=== PATIENT | male | born 1990 | race Caucasian/White ===

== ENCOUNTER 2022-02-02 12:16 | Emergency (ER) | payer MEDICAID, SELFPAY ==
[2022-02-02 13:50] VITALS: BP 146/82; PULSE 90; RESP 20; TEMP 36.5; O2SAT 97; BMI 34.0
--- NOTE | 2022-02-02 13:52 | ED.GENADULT ---
HPI - General Adult General Chief complaint: Abdominal Pain <SUZY Huang - Last Filed: 02/15/22 09:02> Stated complaint: Abd pain/Hernia? <SUZY Huang - Last Filed: 02/15/22 09:02> Time Seen by Provider: 02/02/22 16:47 <SUZY Huang - Last Filed: 02/15/22 09:02> Source: patient <Natalia Hood NP - Last Filed: 02/02/22 23:43> Mode of arrival: ambulatory <Natalia Hood NP - Last Filed: 02/02/22 23:43> Limitations: no limitations <Natalia Hood NP - Last Filed: 02/02/22 23:43> History of Present Illness HPI narrative: 32-year-old male presents with left lower quadrant abdominal pain that started on . He stated that he was lifting at work and felt like a ripping pain was going through his abdomen. He feels a bulging at times, but is able to push the bulge back which reduces his pain. He has more pain on movement than he does at rest, and does not report any fevers, chills, changes in bowel habits, nausea, vomiting, weakness or fatigue. <Natalia Hood NP - Last Filed: 02/02/22 23:43> Onset (ago): day(s) <Natalia Hood NP - Last Filed: 02/02/22 23:43> Location: abdomen <Natalia Hood NP - Last Filed: 02/02/22 23:43> Radiation: non-radiation <Natalia Hood NP - Last Filed: 02/02/22 23:43> Severity: moderate <Natalia Hood NP - Last Filed: 02/02/22 23:43> Severity scale (1-10): 6 <Natalia Hood NP - Last Filed: 02/02/22 23:43> Quality: aching <Natalia Hood NP - Last Filed: 02/02/22 23:43> Pain Consistency: intermittent <Natalia Hood NP - Last Filed: 02/02/22 23:43> Relieving factors: rest <Natalia Hood NP - Last Filed: 02/02/22 23:43> Exacerbating factors: movement <Natalia Hood NP - Last Filed: 02/02/22 23:43> Associated symptoms: denies other symptoms <Natalia Hood NP - Last Filed: 02/02/22 23:43> Treatments prior to arrival: none <Natalia Hood NP - Last Filed: 02/02/22 23:43> Related Data Allergies/adverse reactions: Allergies Allergy/AdvReac Type Severity Reaction Status Date / Time No Known Allergies Allergy Verified 02/02/22 13:52 <SUZY Huang - Last Filed: 02/15/22 09:02> Review of Systems Review of Systems: Constitutional: No Fever, No Chills Cardiovascular: No Chest Pain, No SOB Respiratory: No Cough, No Dyspnea Gastrointestinal: No Nausea, No Vomiting, No Diarrhea, positive abdominal Pain Genitourinary: No Dysuria, No Hematuria Musculoskeletal: No joint pain, No Myalgias, No Joint Swelling Skin: No Skin lacerations, No rash Neuro: No Weakness, No Numbness, No Paresthesias, No Loss of Consciousness, No Dizziness, No Headache <Natalia Hood NP - Last Filed: 02/02/22 23:43> Yes all other systems are reviewed and are negative <Natalia Hood NP - Last Filed: 02/02/22 23:43> [facility] Past Medical History Attestation statement: The following information was validated with the patient. <Natalia Hood NP - Last Filed: 02/02/22 23:43> Source: old records reviewed <Natalia Hood NP - Last Filed: 02/02/22 23:43> Social History Social History: Social History Advance Directives: No Advance Directives Information Provided: No <SUZY Huang - Last Filed: 02/15/22 09:02> Physical Exam ED Vital Signs: Vital Signs - 24 hr 02/02/22 13:50 02/02/22 17:12 Temperature 97.7 F Pulse Rate 90 83 Respiratory Rate 20 16 Blood Pressure 146/82 H 129/81 Pulse Oximetry 97 96 Oxygen Delivery Method Room Air Room Air BMI result Body Mass Index 34.0 <SUZY Huang - Last Filed: 02/15/22 09:02> Vital Signs - 24 hr 02/02/22 13:50 02/02/22 17:12 Temperature 97.7 F Pulse Rate 90 83 Respiratory Rate 20 16 Blood Pressure 146/82 H 129/81 Pulse Oximetry 97 96 Oxygen Delivery Method Room Air Room Air BMI result Body Mass Index 34.0 <Natalia Hood NP - Last Filed: 02/02/22 23:43> Appearance: Alert. Oriented X3. No acute distress. Eyes: Pupils equal, round and reactive to light. ENT: Pharynx normal. Neck: Normal inspection. Neck supple. CVS: Normal heart rate and rhythm. Pulses normal. Respiratory: No respiratory distress. Breath sounds normal. Abdomen: Soft and nontender. Obese. No palpable hernias noted. Skin: Skin warm and dry. Normal skin color. Normal skin turgor. Extremities: Gait well balanced well coordinated. Neuro: No motor deficit. No sensory deficit. Cranial nerves 2-12 intact. <Natalia Hood NP - Last Filed: 02/02/22 23:43> Course Course Course Narrative: RME: 32-year-old male presents to the ED for left lower quadrant pain since that is worse on movement. Patient denies any nausea vomiting. Patient denies any complaints. Physical exam negative for any mass or bulging on palpation. Positive for left lower quadrant tender on palpation. Labs, UA and dry CT scan ordered <SUZY Huang - Last Filed: 02/15/22 09:02> RME: 32-year-old male presents to the ED for left lower quadrant pain since that is worse on movement. Patient denies any nausea vomiting. Patient denies any complaints. Physical exam negative for any mass or bulging on palpation. Positive for left lower quadrant tender on palpation. Labs, UA and dry CT scan ordered 32-year-old male presents with left lower quadrant abdominal pain, sounds more like a muscular skeletal strain verses inguinal hernia than an acute abdomen. Physical exam is normal, no tenderness to palpation or rigidity. No palpable hernias noted. CT scan was completed while patient was in the emergency department waiting room which was negative for acute findings requiring emergent intervention. 16:49 labs reviewed. Unremarkable with the exception of an elevated glucose. Patient is an insulin-dependent diabetic, and did not take his Lantus this morning. Will order L fluid and Lantus. Urinalysis is still pending 18:00 urinalysis shows glucose, which is consistent with his diagnosis of diabetes and medication noncompliance. Patient is alert oriented, no indication of diabetic ketoacidosis or complications related to hyperglycemia. plan of care is to discharge home. I did refer patient to a surgeon as an outpatient for suspected hernia. Patient does understand that he must follow up with primary care physician prior to presenting to surgery. I stressed the importance of medication compliance, patient verbalized understanding of and agrees with plan of care discharge home. Verbalized understanding of signs and symptoms indicating need for emergent intervention. <Natalia Hood NP - Last Filed: 02/02/22 23:43> Medications Administered Discontinued Medications Generic Name Dose Route Start Last Admin Trade Name Freq PRN Reason Stop Dose Admin Sodium Chloride 1,000 mls @ 999 mls/hr 02/02/22 17:30 02/02/22 17:25 Ns IVCONT 02/02/22 18:30 999 mls/hr .Q1H1M JORDAN Administration Insulin Glargine 24 unit 02/02/22 17:53 02/02/22 18:02 Insulin Glargine,Hum.Rec.Anlog 100 Unit/Ml 10 Ml Vial SUBCUT 02/02/22 17:54 24 unit ONCE ONE Administration <SUZY Huang - Last Filed: 02/15/22 09:02> Medications Administered Discontinued Medications Generic Name Dose Route Start Last Admin Trade Name Freq PRN Reason Stop Dose Admin Sodium Chloride 1,000 mls @ 999 mls/hr 02/02/22 17:30 02/02/22 17:25 Ns IVCONT 02/02/22 18:30 999 mls/hr .Q1H1M JORDAN Administration Insulin Glargine 24 unit 02/02/22 17:53 02/02/22 18:02 Insulin Glargine,Hum.Rec.Anlog 100 Unit/Ml 10 Ml Vial SUBCUT 02/02/22 17:54 24 unit ONCE ONE Administration <Natalia Hood NP - Last Filed: 02/02/22 23:43> Medical Decision Making Differential Diagnosis Differential Diagnoses: The differential diagnosis associated with the presentation includes <Natalia Hood NP - Last Filed: 02/02/22 23:43> Diverticulosis, constipation, hernia, appendicitis, hernia, musculoskeletal strain <Natalia Hood NP - Last Filed: 02/02/22 23:43> Admission/Observation Consideration of admission/observation: Escalation of care including admission/observation considered <Natalia Hood NP - Last Filed: 02/02/22 23:43> This patient does not require admission <Natalia Hood NP - Last Filed: 02/02/22 23:43> Lab Data MDM Lab Attestation statement: I reviewed the patient's lab results. <Natalia Hood NP - Last Filed: 02/02/22 23:43> Result Diagrams: 02/02/22 14:20 02/02/22 14:20 <SUZY Huang - Last Filed: 02/15/22 09:02> Labs: Lab Results 02/02/22 02/02/22 02/02/22 Range/Units 14:20 14:20 14:20 WBC 6.6 (4.8-10.8) X10*3/uL RBC 6.00 H (4.60-5.80) X10*6/uL Hgb 16.6 (14.0-18.0) g/dl Hct 47.1 (42.0-52.0) % MCV 78.5 L (80.0-98.0) fL MCH 27.7 (27.0-33.0) pg MCHC 35.2 (31.0-36.0) g/dl RDW 12.8 (11.0-16.0) % Plt Count 193 (160-400) X10*3/uL MPV 10.4 (9.4-12.4) fL Immature Gran % (Auto) 0.5 H (0.0-0.4) % Neut % (Auto) 63.3 (45-73) % Lymph % (Auto) 27.9 (20-40) % [place] % (Auto) 6.3 (2-11) % Eos % (Auto) 1.5 (0-4) % Baso % (Auto) 0.5 (0-2) % Lymph # (Auto) 1.8 (1.2-4.9) X10*3/uL [place] # (Auto) 0.4 (0.1-1.2) X10*3/uL Eos # (Auto) 0.1 (0.0-0.4) X10*3/uL Baso # (Auto) 0.0 (0.0-0.2) X10*3/uL Abs Immat Gran (auto) 0.03 (0.00-0.03) X10*3/uL Absolute Neuts (auto) 4.2 (2.0-8.3) x10*3/uL Absolute Nucleated RBC 0.000 (0.0-0.012) X10*3/uL Nucleated RBC % (auto) 0.0 (0.0-0.2) /100WBC PT 10.7 (10.0-13.1) SEC INR 0.9 (0.9-1.1) APTT 29.1 (26.0-36.4) SEC Sodium 131 L (135-145) mmol/L Potassium 4.5 (3.3-5.1) mmol/L Chloride 98 (96-108) mmol/L Carbon Dioxide 23 (22-29) mmol/L Anion Gap 15 (12-20) BUN 14 (9-16) mg/dL Creatinine 0.84 (0.5-1.4) mg/dL Estim Creat Clear Calc 170.7 Estimated GFR > 60 POC Glucose (60-115) mg/dL Random Glucose 305 H (60-115) mg/dL Calcium 10.1 (8.4-10.2) mg/dL Total Bilirubin 0.6 (0.0-1.0) mg/dL AST 28 (5-37) U/L ALT 65 H (0-40) U/L Alkaline Phosphatase 78 (39-117) U/L Total Protein 8.5 H (6.5-8.0) g/dL Albumin 4.8 (3.5-5.0) g/dL Urine Color Urine Appearance Urine pH (5.0-9.0) Ur Specific [place] (1.005-1.025) Urine Protein (Neg-Trace) mg/dL Urine Glucose (UA) (Negative) mg/dL Urine Ketones (Negative) mg/dL Urine Blood (Negative) Urine Nitrite (Negative) Ur Leukocyte Esterase (Negative) Urine RBC (0-2) /HPF Urine WBC (0-5) /HPF Ur Squamous Epith Cells (0-2) /HPF Urine Bacteria (None Seen) Hyaline Casts (0-2) /LPF 02/02/22 02/02/22 02/02/22 Range/Units 17:17 18:01 18:36 WBC (4.8-10.8) X10*3/uL RBC (4.60-5.80) X10*6/uL Hgb (14.0-18.0) g/dl Hct (42.0-52.0) % MCV (80.0-98.0) fL MCH (27.0-33.0) pg MCHC (31.0-36.0) g/dl RDW (11.0-16.0) % Plt Count (160-400) X10*3/uL MPV (9.4-12.4) fL Immature Gran % (Auto) (0.0-0.4) % Neut % (Auto) (45-73) % Lymph % (Auto) (20-40) % [place] % (Auto) (2-11) % Eos % (Auto) (0-4) % Baso % (Auto) (0-2) % Lymph # (Auto) (1.2-4.9) X10*3/uL [place] # (Auto) (0.1-1.2) X10*3/uL Eos # (Auto) (0.0-0.4) X10*3/uL Baso # (Auto) (0.0-0.2) X10*3/uL Abs Immat Gran (auto) (0.00-0.03) X10*3/uL Absolute Neuts (auto) (2.0-8.3) x10*3/uL Absolute Nucleated RBC (0.0-0.012) X10*3/uL Nucleated RBC % (auto) (0.0-0.2) /100WBC PT (10.0-13.1) SEC INR (0.9-1.1) APTT (26.0-36.4) SEC Sodium (135-145) mmol/L Potassium (3.3-5.1) mmol/L Chloride (96-108) mmol/L Carbon Dioxide (22-29) mmol/L Anion Gap (12-20) BUN (9-16) mg/dL Creatinine (0.5-1.4) mg/dL Estim Creat Clear Calc Estimated GFR POC Glucose 414 H* 405 H* (60-115) mg/dL Random Glucose (60-115) mg/dL Calcium (8.4-10.2) mg/dL Total Bilirubin (0.0-1.0) mg/dL AST (5-37) U/L ALT (0-40) U/L Alkaline Phosphatase (39-117) U/L Total Protein (6.5-8.0) g/dL Albumin (3.5-5.0) g/dL Urine Color Yellow Urine Appearance Clear Urine pH 5.0 (5.0-9.0) Ur Specific [place] >= 1.030 H (1.005-1.025) Urine Protein 30 (1+) H (Neg-Trace) mg/dL Urine Glucose (UA) >=1000 H (Negative) mg/dL Urine Ketones Negative (Negative) mg/dL Urine Blood Negative (Negative) Urine Nitrite Negative (Negative) Ur Leukocyte Esterase Negative (Negative) Urine RBC 0-2 (0-2) /HPF Urine WBC 0-5 (0-5) /HPF Ur Squamous Epith Cells 0-2 (0-2) /HPF Urine Bacteria None Seen (None Seen) Hyaline Casts 0-2 (0-2) /LPF <SUZY Huang - Last Filed: 02/15/22 09:02> Lab Results 02/02/22 02/02/22 02/02/22 Range/Units 14:20 14:20 14:20 WBC 6.6 (4.8-10.8) X10*3/uL RBC 6.00 H (4.60-5.80) X10*6/uL Hgb 16.6 (14.0-18.0) g/dl Hct 47.1 (42.0-52.0) % MCV 78.5 L (80.0-98.0) fL MCH 27.7 (27.0-33.0) pg MCHC 35.2 (31.0-36.0) g/dl RDW 12.8 (11.0-16.0) % Plt Count 193 (160-400) X10*3/uL MPV 10.4 (9.4-12.4) fL Immature Gran % (Auto) 0.5 H (0.0-0.4) % Neut % (Auto) 63.3 (45-73) % Lymph % (Auto) 27.9 (20-40) % [place] % (Auto) 6.3 (2-11) % Eos % (Auto) 1.5 (0-4) % Baso % (Auto) 0.5 (0-2) % Lymph # (Auto) 1.8 (1.2-4.9) X10*3/uL [place] # (Auto) 0.4 (0.1-1.2) X10*3/uL Eos # (Auto) 0.1 (0.0-0.4) X10*3/uL Baso # (Auto) 0.0 (0.0-0.2) X10*3/uL Abs Immat Gran (auto) 0.03 (0.00-0.03) X10*3/uL Absolute Neuts (auto) 4.2 (2.0-8.3) x10*3/uL Absolute Nucleated RBC 0.000 (0.0-0.012) X10*3/uL Nucleated RBC % (auto) 0.0 (0.0-0.2) /100WBC PT 10.7 (10.0-13.1) SEC INR 0.9 (0.9-1.1) APTT 29.1 (26.0-36.4) SEC Sodium 131 L (135-145) mmol/L Potassium 4.5 (3.3-5.1) mmol/L Chloride 98 (96-108) mmol/L Carbon Dioxide 23 (22-29) mmol/L Anion Gap 15 (12-20) BUN 14 (9-16) mg/dL Creatinine 0.84 (0.5-1.4) mg/dL Estim Creat Clear Calc 170.7 Estimated GFR > 60 POC Glucose (60-115) mg/dL Random Glucose 305 H (60-115) mg/dL Calcium 10.1 (8.4-10.2) mg/dL Total Bilirubin 0.6 (0.0-1.0) mg/dL AST 28 (5-37) U/L ALT 65 H (0-40) U/L Alkaline Phosphatase 78 (39-117) U/L Total Protein 8.5 H (6.5-8.0) g/dL Albumin 4.8 (3.5-5.0) g/dL Urine Color Urine Appearance Urine pH (5.0-9.0) Ur Specific [place] (1.005-1.025) Urine Protein (Neg-Trace) mg/dL Urine Glucose (UA) (Negative) mg/dL Urine Ketones (Negative) mg/dL Urine Blood (Negative) Urine Nitrite (Negative) Ur Leukocyte Esterase (Negative) Urine RBC (0-2) /HPF Urine WBC (0-5) /HPF Ur Squamous Epith Cells (0-2) /HPF Urine Bacteria (None Seen) Hyaline Casts (0-2) /LPF 02/02/22 02/02/22 02/02/22 Range/Units 17:17 18:01 18:36 WBC (4.8-10.8) X10*3/uL RBC (4.60-5.80) X10*6/uL Hgb (14.0-18.0) g/dl Hct (42.0-52.0) % MCV (80.0-98.0) fL MCH (27.0-33.0) pg MCHC (31.0-36.0) g/dl RDW (11.0-16.0) % Plt Count (160-400) X10*3/uL MPV (9.4-12.4) fL Immature Gran % (Auto) (0.0-0.4) % Neut % (Auto) (45-73) % Lymph % (Auto) (20-40) % [place] % (Auto) (2-11) % Eos % (Auto) (0-4) % Baso % (Auto) (0-2) % Lymph # (Auto) (1.2-4.9) X10*3/uL [place] # (Auto) (0.1-1.2) X10*3/uL Eos # (Auto) (0.0-0.4) X10*3/uL Baso # (Auto) (0.0-0.2) X10*3/uL Abs Immat Gran (auto) (0.00-0.03) X10*3/uL Absolute Neuts (auto) (2.0-8.3) x10*3/uL Absolute Nucleated RBC (0.0-0.012) X10*3/uL Nucleated RBC % (auto) (0.0-0.2) /100WBC PT (10.0-13.1) SEC INR (0.9-1.1) APTT (26.0-36.4) SEC Sodium (135-145) mmol/L Potassium (3.3-5.1) mmol/L Chloride (96-108) mmol/L Carbon Dioxide (22-29) mmol/L Anion Gap (12-20) BUN (9-16) mg/dL Creatinine (0.5-1.4) mg/dL Estim Creat Clear Calc Estimated GFR POC Glucose 414 H* 405 H* (60-115) mg/dL Random Glucose (60-115) mg/dL Calcium (8.4-10.2) mg/dL Total Bilirubin (0.0-1.0) mg/dL AST (5-37) U/L ALT (0-40) U/L Alkaline Phosphatase (39-117) U/L Total Protein (6.5-8.0) g/dL Albumin (3.5-5.0) g/dL Urine Color Yellow Urine Appearance Clear Urine pH 5.0 (5.0-9.0) Ur Specific [place] >= 1.030 H (1.005-1.025) Urine Protein 30 (1+) H (Neg-Trace) mg/dL Urine Glucose (UA) >=1000 H (Negative) mg/dL Urine Ketones Negative (Negative) mg/dL Urine Blood Negative (Negative) Urine Nitrite Negative (Negative) Ur Leukocyte Esterase Negative (Negative) Urine RBC 0-2 (0-2) /HPF Urine WBC 0-5 (0-5) /HPF Ur Squamous Epith Cells 0-2 (0-2) /HPF Urine Bacteria None Seen (None Seen) Hyaline Casts 0-2 (0-2) /LPF <Natalia Hood NP - Last Filed: 02/02/22 23:43> Independent Interpretation I performed an independent interpretation of an: CT Scan <Ntaalia Hood NP - Last Filed: 02/02/22 23:43> Radiology Impression Discussion of test interpretation with radiology: I have reviewed the radiologist's reading. <Natalia Hood NP - Last Filed: 02/02/22 23:43> Radiologist Impression: EXAMINATION: CT ABDOMEN AND PELVIS WITHOUT CONTRAST? CLINICAL INFORMATION: Left lower quadrant abdominal pain.? COMPARISON: None? TECHNIQUE: Multidetector volumetric imaging was performed from the superior aspect of the liver through the pubic symphysis. Sagittal and coronal reformatted images were obtained on the technologist's workstation.? This CT examination was performed using dose optimization techniques as appropriate, variously including the following: *Automated exposure control *Adjustment of mA and/or kV according to patient size (this includes techniques or standardized protocols for targeted exams where dose is matched to indication/reason for exam; i.e. extremities or head) *Use of iterative reconstruction technique DLP: 895. mGy-cm FINDINGS: LUNG BASES: The visualized lung bases are unremarkable.? LIVER, GALLBLADDER, AND BILIARY TREE: Hepatomegaly with diffuse hepatic steatosis. The liver measures approximately 25.5 cm. No discrete focal liver lesion on this nonenhanced study. The gallbladder is unremarkable with no evidence of radiopaque gallstones, gallbladder wall thickening, or obvious pericholecystic inflammatory changes.? PANCREAS: Unremarkable.? SPLEEN: Enlarged, measures approximately 16 cm at its maximum dimension.? ADRENAL GLANDS: Unremarkable.? KIDNEYS AND URETERS: The kidneys are normal in size, shape, and attenuation. No hydronephrosis, hydroureter, or calculi seen. No perinephric stranding. ? BLADDER: Unremarkable.? GASTROINTESTINAL TRACT: The small and large bowel are unremarkable. The appendix is unremarkable (55:7).? ABDOMINAL WALL: No significant hernia is appreciated.? LYMPH NODES: Normal. VASCULAR: Unremarkable. PELVIC VISCERA: There is no pelvic mass present. No evidence of any free fluid and/or free air.? OSSEOUS STRUCTURES: Unremarkable.? CT/CT abdomen pelvis wo IV con IMPRESSION: ? 1. Hepatosplenomegaly and evidence of diffuse hepatic steatosis. 2. No acute intra-abdominal and/or intrapelvic pathology.? ? Fleischner guidelines were followed. <Natalia Hood NP - Last Filed: 02/02/22 23:43> Chronic Conditions Patient?s care impacted by: Diabetes <Natalia Hood NP - Last Filed: 02/02/22 23:43> Discharge Plan Discharge Clinical Impression: Abdominal pain, Diabetes mellitus with hyperglycemia <SUZY Huang - Last Filed: 02/15/22 09:02> Patient Disposition: Home, Self-Care <SUZY Huang - Last Filed: 02/15/22 09:02> Instructions: Abdominal Pain (ED), Diabetic Hyperglycemia (ED) <SUZY Huang - Last Filed: 02/15/22 09:02> Additional Instructions: You were evaluated for abdominal pain. CT scan of abdomen pelvis is negative for acute findings requiring emergent intervention. Description of your pain is consistent with the suspected hernia. Please follow-up with primary care physician. If symptoms persist you may consider a surgical consult. I will refer you to Dr. Isai Oneil. Please follow-up as a nonemergent outpatient. Call and request an appointment for evaluation if symptoms persist over 2 weeks. Your blood sugar was elevated, we gave you your daily insulin dose of Lantus 24 units. Resume medications tomorrow. Thank you for choosing this emergency department for evaluation. Please follow-up with primary care physician as needed. Return to the emergency department for any new, concerning, or worsening symptoms. <SUZY Huang - Last Filed: 02/15/22 09:02> Referrals: Isai Oneil MD [Physician] - 2 weeks (Suspected left inguinal hernia) <SUZY Huang - Last Filed: 02/15/22 09:02> Stand Alone Forms: Work/School Release <SUZY Huang - Last Filed: 02/15/22 09:02> Interventions: ED Discharge Assessment Last Done: 02/02/22 19:34 <SUZY Huang - Last Filed: 02/15/22 09:02> Discharge Date/Time: 02/02/22 19:37 <SUZY Huang - Last Filed: 02/15/22 09:02>
[2022-02-02 14:24] LABS: MANUAL DIFF FLAG NO
[2022-02-02 14:29] LABS: Basophils Percent Auto 0.5 % (0-2); Eosinophils Absolute Auto 0.1 X10*3/uL (0.0-0.4); Eosinophils Percent Auto 1.5 % (0-4); Hematocrit 47.1 % (42.0-52.0); Hemoglobin 16.6 g/dl (14.0-18.0); Imm Gran Abs Auto 0.03 X10*3/uL (0.00-0.03); Imm Gran Pct Auto 0.5 % (0.0-0.4); Lymphocytes Absolute Auto 1.8 X10*3/uL (1.2-4.9); Lymphocytes Percent Auto 27.9 % (20-40); Mean Corpuscular HGB Conc 35.2 g/dl (31.0-36.0); Mean Corpuscular Hemoglobin 27.7 pg (27.0-33.0); Mean Corpuscular Volume 78.5 fL (80.0-98.0); Mean Platelet Volume 10.4 fL (9.4-12.4); Monocytes Absolute Auto 0.4 X10*3/uL (0.1-1.2); Monocytes Percent Auto 6.3 % (2-11); Neutrophils Absolute Auto 4.2 x10*3/uL (2.0-8.3); Neutrophils Percent Auto 63.3 % (45-73); Platelet Count 193 X10*3/uL (160-400); Red Cell Distribution Width 12.8 % (11.0-16.0); White Blood Count 6.6 X10*3/uL (4.8-10.8)
[2022-02-02 14:30] LABS: INTERNATIONAL NORM RATIO 0.9 (0.9-1.1); Prothrombin Time 10.7 SEC (10.0-13.1)
[2022-02-02 14:33] LABS: Partial Thromboplastin Time 29.1 SEC (26.0-36.4)
[2022-02-02 14:57] LABS: Alanine Aminotransferase 65 U/L (0-40); Albumin Level 4.8 g/dL (3.5-5.0); Alkaline Phosphatase 78 U/L (39-117); Anion Gap 15 (12-20); Aspartate Amino Transferase 28 U/L (5-37); Bilirubin Total 0.6 mg/dL (0.0-1.0); Blood Urea Nitrogen 14 mg/dL (9-16); Calcium 10.1 mg/dL (8.4-10.2); Carbon Dioxide 23 mmol/L (22-29); Chloride 98 mmol/L (96-108); Creatinine Clr Calc Pharmacy 170.7; Estimated Glomerular Filt Rate > 60; Glucose Random 305 mg/dL (60-115); Potassium 4.5 mmol/L (3.3-5.1); Sodium 131 mmol/L (135-145); Total Protein 8.5 g/dL (6.5-8.0)
[2022-02-02 17:12] VITALS: BP 129/81; PULSE 83; RESP 16; O2SAT 96
[2022-02-02 17:27] LABS: Appearance Urine Clear; Color Urine Yellow; Glucose Urine UA >=1000 mg/dL (Negative); Leukocyte Esterase Urine Negative (Negative); Nitrite Urine Negative (Negative); Specific Gravity - Urine >= 1.030 (1.005-1.025); UMIC TRIGGER UACC YES; Urine Blood Negative (Negative); Urine Ketones Negative (Negative); Urine Protein 30 (1+) mg/dL (Neg-Trace)
[2022-02-02 17:32] LABS: Bacteria Urine None Seen (None Seen); Hyaline Casts Urine 0-2 /LPF (0-2); RBC Urine 0-2 /HPF (0-2); Squamous Epithelial Cell Urine 0-2 /HPF (0-2); WBC Urine 0-5 /HPF (0-5)
--- NOTE | 2022-02-02 18:04 | PC.NURSE ---
pt. missed glargene dose this morning. glucose is 414. admin 24 units of glargene per providers orders
== END 2022-02-02 19:37 | disposition home or self-care (01) ==
PROVIDERS: Physician Assistant; Emergency Provider Internal Medicine; PCP Internal Medicine
DX: R10.32 Left lower quadrant pain (principal); E11.65 Type 2 diabetes mellitus with hyperglycemia
CPT/HCPCS: 36415; 74176; 80053; 81001; 82947; 85025; 85610; 85730; 99284